=== PATIENT | female | born 1985 | race Caucasian/White ===

== ENCOUNTER 2021-09-15 20:37 | Emergency (ER) | payer OTHER, SELFPAY ==
--- NOTE | 2021-09-15 20:46 | ED_ITS ---
HPI - Seizure General Chief Complaint: Seizure Stated Complaint: Seizure Time Seen by Provider: 09/15/21 20:42 Source: patient Mode of arrival: EMS Limitations: no limitations History of Present Illness HPI Narrative: Patient form longterm morbidly obese 499 lb came from longterm with history of schizoaffective disorder borderline personality disorder posttraumatic stress disorder pseudoseizures and diabetes and also seizure disorder on zonisamide 100 mg daily lamotrigine 150 mg daily and lacosamide 200 mg twice daily also on Ativan 2 mg as needed for seizures today patient had 2 seizures 1 at 19:00 another 1 at 07:30 lasted over a minute patient slumped down from the bed no significant head injury on arrival patient was shaking her upper extremity and lower extremity but awake and communicating not sure whether patient has real seizure or pseudoseizures Related Data Allergies Allergy/AdvReac Type Severity Reaction Status Date / Time Fish Containing Products Allergy Unknown Verified 09/15/21 22:17 Penicillins Allergy Unknown Verified 09/15/21 22:16 tramadol Allergy Unknown Verified 09/15/21 22:17 Review of Systems Review of Systems: Yes all other systems are reviewed and are negative [facility] Social History Social History Advance Directives: No Advance Directives Information Provided: No Physical Exam Vital Signs: Vital Signs: Last Vital Signs Temp 97.9 F 09/15/21 20:52 Pulse 99 09/15/21 21:53 Resp 18 09/15/21 21:53 BP 149/75 H 09/15/21 21:53 Pulse Ox 95 09/15/21 21:53 BMI result Body Mass Index 85.6 Appearance: Alert. Oriented X3. No acute distress. Morbidly obese Eyes: PERRLA, No Nystagmus ENT: Pharynx normal. Oral Mucosa moist Neck: Normal inspection. Neck supple. CVS: Normal heart rate and rhythm. Pulses normal. Respiratory: No respiratory distress. Equal air entry bilateral, no wheezing/rales/rhonchi Abdomen: Soft and nontender. Bowel sounds are present, Skin: Skin warm and dry. Normal skin color. Normal skin turgor. Extremities: No lower extremity edema. No calf tenderness Neuro: Oriented X 3. No motor deficit. No sensory deficit.No cerebellar signs , cranial nerves II-XII intact MDM - Seizure MDM Narrative Medical decision making narrative: Patient with seizures/pseudoseizures disorder on multiple medications at longterm had 2 episodes of short lasting seizures in the ER patient was shaking but alert and awake likely a pseudo seizure patient was given 2 mg of Ativan ivlabs are stable will discharge patient back to longterm Lab Data Attestation: I reviewed the patient's lab results. Result diagrams: 09/15/21 20:56 09/15/21 21:18 Labs: Lab Results 09/15/21 09/15/21 09/15/21 Range/Units 20:56 21:17 21:18 WBC 9.2 (4.8-10.8) X10*3/uL RBC 4.00 L (4.20-5.50) X10*6/uL Hgb 10.7 L (12.0-16.0) g/dl Hct 34.7 L (37.0-47.0) % MCV 86.8 (80.0-98.0) fL MCH 26.8 L (27.0-33.0) pg MCHC 30.8 L (31.0-35.0) g/dl RDW 16.8 H (11.0-16.0) % Plt Count 232 (160-400) X10*3/uL MPV 9.7 (9.4-12.3) fL Immature Gran % (Auto) 0.4 (0.0-0.4) % Neut % (Auto) 78.4 H (45-73) % Lymph % (Auto) 13.3 L (20-40) % [place] % (Auto) 7.2 (2-11) % Eos % (Auto) 0.5 (0-4) % Baso % (Auto) 0.2 (0-2) % Lymph # (Auto) 1.2 (1.2-4.9) X10*3/uL [place] # (Auto) 0.7 (0.1-1.2) X10*3/uL Eos # (Auto) 0.1 (0.0-0.4) X10*3/uL Baso # (Auto) 0.0 (0.0-0.2) X10*3/uL Abs Immat Gran (auto) 0.04 H (0.00-0.03) X10*3/uL Absolute Neuts (auto) 7.2 (2.0-8.3) x10*3/uL Absolute Nucleated RBC 0.000 (0.0-0.012) X10*3/uL Nucleated RBC % (auto) 0.0 (0.0-0.2) /100WBC PT 20.2 H (9.9-13.0) SEC INR 1.8 H (0.9-1.1) APTT 38.7 H (24.1-38.0) SEC Sodium 140 (135-145) mmol/L Potassium 3.8 (3.3-5.1) mmol/L Chloride 101 (96-108) mmol/L Carbon Dioxide 30 H (22-29) mmol/L Anion Gap 13 (12-20) BUN 11 (9-16) mg/dL Creatinine 0.67 (0.5-1.4) mg/dL Estim Creat Clear Calc 226.0 Estimated GFR > 60 Random Glucose 150 H (60-115) mg/dL Calcium 8.5 (8.4-10.2) mg/dL Total Bilirubin 0.3 (0.0-1.0) mg/dL AST 8 (5-31) U/L ALT 15 (0-31) U/L Alkaline Phosphatase 63 (39-117) U/L Total Protein 5.6 L (6.5-8.0) g/dL Albumin 3.6 (3.5-5.0) g/dL Discharge Plan Discharge Clinical Impression: Generalized seizure Patient Disposition: Xfer [facility] Instructions: Nonepileptic Seizures (DC), Recurrent Seizures in Adults (ED) Additional Instructions: Possibly patient had pseudoseizures also had small real seizure at this time patient advised to continue same medication as before and follow up with neurologist
[2021-09-15 20:52] VITALS: BP 116/98; PULSE 99; RESP 21; TEMP 36.6; O2SAT 97; BMI 85.6
[2021-09-15 21:01] LABS: MANUAL DIFF FLAG NO
[2021-09-15 21:03] LABS: Basophils Percent Auto 0.2 % (0-2); Eosinophils Absolute Auto 0.1 X10*3/uL (0.0-0.4); Eosinophils Percent Auto 0.5 % (0-4); Hematocrit 34.7 % (37.0-47.0); Hemoglobin 10.7 g/dl (12.0-16.0); Imm Gran Abs Auto 0.04 X10*3/uL (0.00-0.03); Imm Gran Pct Auto 0.4 % (0.0-0.4); Lymphocytes Absolute Auto 1.2 X10*3/uL (1.2-4.9); Lymphocytes Percent Auto 13.3 % (20-40); Mean Corpuscular HGB Conc 30.8 g/dl (31.0-35.0); Mean Corpuscular Hemoglobin 26.8 pg (27.0-33.0); Mean Corpuscular Volume 86.8 fL (80.0-98.0); Mean Platelet Volume 9.7 fL (9.4-12.3); Monocytes Absolute Auto 0.7 X10*3/uL (0.1-1.2); Monocytes Percent Auto 7.2 % (2-11); Neutrophils Absolute Auto 7.2 x10*3/uL (2.0-8.3); Neutrophils Percent Auto 78.4 % (45-73); Platelet Count 232 X10*3/uL (160-400); Red Cell Distribution Width 16.8 % (11.0-16.0); White Blood Count 9.2 X10*3/uL (4.8-10.8)
[2021-09-15 21:33] LABS: INTERNATIONAL NORM RATIO 1.8 (0.9-1.1); Prothrombin Time 20.2 SEC (9.9-13.0)
[2021-09-15 21:36] LABS: Partial Thromboplastin Time 38.7 SEC (24.1-38.0)
[2021-09-15 21:45] LABS: Alanine Aminotransferase 15 U/L (0-31); Albumin Level 3.6 g/dL (3.5-5.0); Alkaline Phosphatase 63 U/L (39-117); Anion Gap 13 (12-20); Aspartate Amino Transferase 8 U/L (5-31); Bilirubin Total 0.3 mg/dL (0.0-1.0); Blood Urea Nitrogen 11 mg/dL (9-16); Calcium 8.5 mg/dL (8.4-10.2); Carbon Dioxide 30 mmol/L (22-29); Chloride 101 mmol/L (96-108); Estimated Glomerular Filt Rate > 60; Glucose Random 150 mg/dL (60-115); Potassium 3.8 mmol/L (3.3-5.1); Sodium 140 mmol/L (135-145); Total Protein 5.6 g/dL (6.5-8.0)
[2021-09-15 21:53] VITALS: BP 149/75; PULSE 99; RESP 18; O2SAT 95
[2021-09-15] MEDS: LORazepam 2 MG/ML VIAL IVPUSH (22:15)
--- NOTE | 2021-09-15 22:48 | PC.NURSE ---
Pt medicated per AUG Pt tolerated well Report given to [facility]
== END 2021-09-16 00:18 ==
PROVIDERS: Emergency Provider Internal Medicine; PCP Internal Medicine
DX: R56.9 Unspecified convulsions (principal); Z79.899 Other long term (current) drug therapy
CPT/HCPCS: 36415; 80053; 85025; 85610; 85730; 96374; 99283; 99284; J2060

== ENCOUNTER 2021-09-20 17:14 | Emergency (ER) | payer OTHER, SELFPAY ==
[2021-09-20] VITALS (9 sets, daily range): BP systolic 107–140; BP diastolic 46–86; PULSE 92–115; RESP 15–22; TEMP 36.5–37.1; O2SAT 91–97; BMI 90.9
--- NOTE | ~2021-09-20 | XR_ITS ---
EXAMINATION: XR CHEST CLINICAL INFORMATION: Shortness of breath COMPARISON: None TECHNIQUE: Frontal portable view of the chest was obtained. 6:09 PM FINDINGS: No significant abnormality is noted involving the heart, lungs, mediastinum, bony thorax or soft tissues. XR/XR chest 1V IMPRESSION: Unremarkable examination.
--- NOTE | 2021-09-20 17:28 | ED_ITS ---
HPI - Psych General Chief Complaint: Psychiatric Symptoms Stated Complaint: crisis Time Seen by Provider: 09/20/21 17:23 Source: patient Mode of arrival: EMS Limitations: no limitations History of Present Illness HPI Narrative: This is a 36-year-old female past medical history significant for asthma, anxiety, depression, morbid obesity weighing 499 lb, schizoaffective disorder, borderline personality disorder, posttraumatic stress disorder, pseudoseizures, diabetes and seizure disorder presenting to the emergency department with suicidal ideation x1 week progressively worsening. Patient tells me she has been having intermittent suicidal thoughts however she tells me she will need never act on them. She reports increased anxiety. She tells me that the triggering event this thinking about her dad children. She is currently living in a assisted facility which she really likes however, she does not trust the therapist that works there. Patient is tearful upon my history taking. She tells me that recently she cannot keep her mind off of her diet children. 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 She denies drugs, alcohol and tobacco. She also denies visual, auditory and tactile hallucinations. She denies homicidal ideation. Patient tells me that she feels slightly short of breath and like she is wheezing. She denies chest pain, headache, dizziness, weakness, lethargy, fevers, chills, cough, nausea, vomiting, abdominal pain, changes in bowel habits. MD complaint: suicidal ideation, feels depressed and anxiety Onset (ago): week(s) (1) Duration: constant History of same: Yes Relieving factors: none Exacerbating factors: none Context: significant life stressor ( of child years ago.) Associated psychiatric symptoms: depression and suicidal ideation Associated symptoms: denies other symptoms Treatments prior to arrival: none If self harm: admits thoughts of self harm Related Data Home Medications Medication Instructions Recorded Confirmed aclidinium bromide 400 1 inh INHALATION BID 09/20/21 09/20/21 mcg/actuation breath activated powder inhaler (Tudorza Pressair) ascorbic acid (vitamin C) 500 mg 500 mg PO BID 09/20/21 09/20/21 tablet (Vitamin C) calcium carbonate 500 mg calcium 500 mg PO DAILY 09/20/21 09/20/21 (1,250 mg) chewable tablet darunavir 800 mg-cobicistat 150 mg 1 tab PO DAILY 09/20/21 09/20/21 tablet (Prezcobix) divalproex 250 mg tablet,delayed 250 mg PO BID 09/20/21 09/20/21 release docusate sodium 100 mg capsule 100 mg PO BID 09/20/21 09/20/21 fluticasone 500 mcg-salmeterol 50 1 inh INHALATION BID 09/20/21 09/20/21 mcg/dose blistr powdr for inhalation (Advair Diskus) furosemide 40 mg tablet 40 mg PO DAILY 09/20/21 09/20/21 gabapentin 600 mg tablet 600 mg PO QID 09/20/21 09/20/21 haloperidol 10 mg tablet 10 mg PO BEDTIME 09/20/21 09/20/21 haloperidol 5 mg tablet 5 mg PO DAILY 09/20/21 09/20/21 insulin aspart U-100 100 unit/mL 1 sliding scale dose SUBCUT BID 09/20/21 09/20/21 subcutaneous solution (Novolog U-100 Insulin aspart) insulin glargine 100 unit/mL 30 unit SUBCUT BEDTIME 09/20/21 09/20/21 subcutaneous solution (Lantus U-100 Insulin) lacosamide 200 mg tablet 200 mg PO BID 09/20/21 09/20/21 lamotrigine 150 mg tablet 150 mg PO DAILY 09/20/21 09/20/21 levalbuterol tartrate 45 1 puff INHALATION Q4-6H PRN 09/20/21 09/20/21 mcg/actuation aerosol inhaler levothyroxine 50 mcg tablet 50 mcg PO DAILY 09/20/21 09/20/21 liraglutide 0.6 mg/0.1 mL (18 mg/3 3 mg SUBCUT DAILY 09/20/21 09/20/21 mL) subcutaneous pen injector (Victoza 3-Fabian) loratadine 10 mg tablet 10 mg PO DAILY 09/20/21 09/20/21 lorazepam 2 mg tablet 2 mg PO DAILY PRN 09/20/21 09/20/21 melatonin 3 mg tablet 6 mg PO BEDTIME 09/20/21 09/20/21 metoprolol tartrate 50 mg tablet 50 mg PO BID 09/20/21 09/20/21 multivitamin 1 tab PO DAILY 09/20/21 09/20/21 olanzapine 5 mg tablet 5 mg PO Q6H PRN 09/20/21 09/20/21 pantoprazole 40 mg tablet,delayed 40 mg PO DAILY 09/20/21 09/20/21 release potassium chloride 20 mEq 20 meq PO DAILY 09/20/21 09/20/21 tablet,extended release sennosides 8.6 mg tablet (senna) 17.2 mg PO DAILY 09/20/21 09/20/21 trazodone 100 mg tablet 200 mg PO BEDTIME 09/20/21 09/20/21 warfarin 10 mg tablet 12 mg PO DAILY@1700 09/20/21 09/20/21 zonisamide 100 mg capsule 100 mg PO DAILY 09/20/21 09/20/21 Allergies Allergy/AdvReac Type Severity Reaction Status Date / Time Fish Containing Products Allergy Unknown Verified 09/15/21 22:17 Penicillins Allergy Unknown Verified 09/15/21 22:16 tramadol Allergy Unknown Verified 09/15/21 22:17 Review of Systems Review of Systems: Constitutional : No Weight loss, No Fever, No Chills, No Fatigue, No Malaise ENT/Mouth : No sore throat, No Rhinorrhea Eyes: No Eye Pain, No Swelling, No Redness Cardiovascular : No Chest Pain, + SOB, No Dyspnea on Exertion, No Orthopnea, No Edema, No Palpitations Respiratory : No Cough, No Sputum, + Wheezing Gastrointestinal : No Nausea, No Vomiting, No Diarrhea, No Constipation, No abdominal Pain, No Hematochezia, No Melena Genitourinary : No Dysuria, No Urinary Frequency, No Hematuria, Musculoskeletal : No joint pain, No Myalgias, No Joint Swelling Skin : No Skin Lesions, No rash Neuro : No Weakness, No Numbness, No Dizziness, No Headache Psych : + Anxiety/Panic, No Depression, + SI, No HI All other systems reviewed and are negative Yes all other systems are reviewed and are negative [facility] Past Medical History Attestation statement: The following information was validated with the patient. Source: old records reviewed and nursing notes reviewed Social History Social History Advance Directives: No Advance Directives Information Provided: No Physical Exam Vital Signs: Vital Signs: Last Vital Signs Temp 97.7 F 09/20/21 17:36 Pulse 92 09/20/21 17:41 Resp 20 09/20/21 17:41 BP 140/84 H 09/20/21 17:36 Pulse Ox 93 09/20/21 17:36 BMI result Body Mass Index 90.9 Patient noted to be slightly tachycardic and tachypneic however she is tearful, and anxious. Will repeat vitals and patient is more calm. Appearance: Alert.? Oriented X3.? No acute distress.? Patient is tearful. Head: Normocephalic, atraumatic, no step-offs or deformities Eyes: Pupils equal, round and reactive to light.? ENT: Pharynx normal.? Neck: Normal inspection.? Neck supple.? CVS: Normal heart rate and rhythm.? Pulses normal.? Respiratory: No respiratory distress.? Wheezing appreciated throughout all lung herbert. Abdomen: Soft and nontender.? Skin: Skin warm and dry.? Normal skin color.? Normal skin turgor.? Extremities: 2+ pitting edema to bilateral lower extremities No calf ttp, negative Ca bilaterally 5/5 strength to bilateral upper and lower extremities Back: No midline tenderness, no C-spine tenderness, full range of motion, no CVA tenderness bilaterally Neuro: Oriented X 3.? No motor deficit.? No sensory deficit. CN 2-12 intact Course Reevaluation(s) Reevaluation #1: Patient reports that the wheezing improved after albuterol treatment. Patient is noted to have a baseline normocytic anemia. Chemistry with no acute electrolyte abnormalities. BNP within normal limits unlikely that this is CHF. Likely asthma. Patient's urine clean for infection. Patient's urine toxicology positive for fentanyl. Ethanol negative. COVID negative. At this time troponin pending, chest x-ray pending. Time: 18:36 Reevaluation #2: I was called to the bedside as patient was shaking and not responding. Arm drop test normal unlikely that this is a seizure. Likely pseudo seizure. Will obtain CBC, lactic in CK to confirm. Patient now back to baseline saturating well on room air, vital signs stable. Time: 18:54 Reevaluation #3: Repeat CBC within normal limits. Lactic negative. Total creatinine kinase within normal limits. Unlikely that this was a seizure. Patient's troponin negative patient not experiencing chest pain, EKG nonischemic unlikely ACS. BNP negative in it x-ray is unremarkable unlikely CHF. Patient's wheezing likely secondary to asthma. She sounds better after an albuterol treatment. Patient saturating well on room air, negative Ca bilaterally, PERC negative unlikely PE. At this time patient will be placed in physician observation to allow more time to be evaluated by the behavioral health team. At time observation was started patient common cooperative no acute distress. Time: 20:04 MDM - Psych MDM Narrative Medical decision making narrative: 1730 36 yo f pmhx anxiety, depression, schizoaffective d/o, borderline personality d/o, ptsd , dm, seziure, asthma presents w/ wheezing X1 days and depression, anxiety, intermitent passive si thoughts w/o plan X1 week PE with 2+ pitting edema, wheezing throughout, RRR, abdomen soft nontender non distended, neuro nonfocal. Negative ca b/l. Patient tearful. Plan- albuterol, labs, imaging, ua, ethanol, bhn, safety checks Will rule out pneumonia. History and physical examination not consistent with ACS (denies chest pain) or PE. Likely asthma exacerbation. Will also rule out CHF as patient does have 2+ pitting edema to lower extremities. Medical Records Attestation: I reviewed the patient's medical records. Lab Data Attestation: I reviewed the patient's lab results. Result diagrams: 09/20/21 19:12 09/20/21 17:54 Labs: Lab Results 09/20/21 09/20/21 09/20/21 Range/Units 17:54 17:54 17:54 WBC 9.1 (4.8-10.8) X10*3/uL RBC 3.94 L (4.20-5.50) X10*6/uL Hgb 10.3 L (12.0-16.0) g/dl Hct 34.3 L (37.0-47.0) % MCV 87.1 (80.0-98.0) fL MCH 26.1 L (27.0-33.0) pg MCHC 30.0 L (31.0-35.0) g/dl RDW 16.7 H (11.0-16.0) % Plt Count 215 (160-400) X10*3/uL MPV 9.0 L (9.4-12.3) fL Immature Gran % (Auto) 0.4 (0.0-0.4) % Neut % (Auto) 78.2 H (45-73) % Lymph % (Auto) 13.4 L (20-40) % [place] % (Auto) 7.3 (2-11) % Eos % (Auto) 0.4 (0-4) % Baso % (Auto) 0.3 (0-2) % Lymph # (Auto) 1.2 (1.2-4.9) X10*3/uL [place] # (Auto) 0.7 (0.1-1.2) X10*3/uL Eos # (Auto) 0.0 (0.0-0.4) X10*3/uL Baso # (Auto) 0.0 (0.0-0.2) X10*3/uL Abs Immat Gran (auto) 0.04 H (0.00-0.03) X10*3/uL Absolute Neuts (auto) 7.1 (2.0-8.3) x10*3/uL Absolute Nucleated RBC 0.000 (0.0-0.012) X10*3/uL Nucleated RBC % (auto) 0.0 (0.0-0.2) /100WBC Sodium 141 (135-145) mmol/L Potassium 3.9 (3.3-5.1) mmol/L Chloride 101 (96-108) mmol/L Carbon Dioxide 28 (22-29) mmol/L Anion Gap 16 (12-20) BUN 13 (9-16) mg/dL Creatinine 0.67 (0.5-1.4) mg/dL Estim Creat Clear Calc 252.5 Estimated GFR > 60 Random Glucose 131 H (60-115) mg/dL Lactic Acid (0.5-2.0) mmol/L Calcium 9.0 (8.4-10.2) mg/dL Magnesium 1.7 (1.6-2.6) mg/dL Total Bilirubin 0.2 (0.0-1.0) mg/dL AST 7 (5-31) U/L ALT 14 (0-31) U/L Alkaline Phosphatase 64 (39-117) U/L Total Creatine Kinase (26-140) U/L Troponin I High Sens (<3.5-17.0) ng/L B-Natriuretic Peptide (<100) pg/mL Total Protein 5.8 L (6.5-8.0) g/dL Albumin 3.6 (3.5-5.0) g/dL Urine Color Urine Appearance Urine pH (5.0-8.0) Ur Specific [place] (1.005-1.025) Urine Protein (NEG-TRACE) MG/DL Urine Glucose (UA) (NEG) MG/DL Urine Ketones (NEG) MG/DL Urine Blood (NEG) Urine Nitrite (NEG) Ur Leukocyte Esterase (NEG) Urine Opiates Screen (Not Detect) Urine Fentanyl Screen (Not Detect) Ur Barbiturates Screen (Not Detect) Ur Phencyclidine Scrn (Not Detect) Ur Amphetamines Screen (Not Detect) U Benzodiazepines Scrn (Not Detect) Urine Cocaine Screen (Not Detect) U Marijuana (THC) Screen (Not Detect) Ethyl Alcohol mg/dL COVID-19 (JOELLEN) Negative (Negative) COVID-19 Clin Com See Note 09/20/21 09/20/21 09/20/21 Range/Units 17:54 17:54 17:54 WBC (4.8-10.8) X10*3/uL RBC (4.20-5.50) X10*6/uL Hgb (12.0-16.0) g/dl Hct (37.0-47.0) % MCV (80.0-98.0) fL MCH (27.0-33.0) pg MCHC (31.0-35.0) g/dl RDW (11.0-16.0) % Plt Count (160-400) X10*3/uL MPV (9.4-12.3) fL Immature Gran % (Auto) (0.0-0.4) % Neut % (Auto) (45-73) % Lymph % (Auto) (20-40) % [place] % (Auto) (2-11) % Eos % (Auto) (0-4) % Baso % (Auto) (0-2) % Lymph # (Auto) (1.2-4.9) X10*3/uL [place] # (Auto) (0.1-1.2) X10*3/uL Eos # (Auto) (0.0-0.4) X10*3/uL Baso # (Auto) (0.0-0.2) X10*3/uL Abs Immat Gran (auto) (0.00-0.03) X10*3/uL Absolute Neuts (auto) (2.0-8.3) x10*3/uL Absolute Nucleated RBC (0.0-0.012) X10*3/uL Nucleated RBC % (auto) (0.0-0.2) /100WBC Sodium (135-145) mmol/L Potassium (3.3-5.1) mmol/L Chloride (96-108) mmol/L Carbon Dioxide (22-29) mmol/L Anion Gap (12-20) BUN (9-16) mg/dL Creatinine (0.5-1.4) mg/dL Estim Creat Clear Calc Estimated GFR Random Glucose (60-115) mg/dL Lactic Acid (0.5-2.0) mmol/L Calcium (8.4-10.2) mg/dL Magnesium (1.6-2.6) mg/dL Total Bilirubin (0.0-1.0) mg/dL AST (5-31) U/L ALT (0-31) U/L Alkaline Phosphatase (39-117) U/L Total Creatine Kinase (26-140) U/L Troponin I High Sens < 3.5 (<3.5-17.0) ng/L B-Natriuretic Peptide 38 (<100) pg/mL Total Protein (6.5-8.0) g/dL Albumin (3.5-5.0) g/dL Urine Color Urine Appearance Urine pH (5.0-8.0) Ur Specific [place] (1.005-1.025) Urine Protein (NEG-TRACE) MG/DL Urine Glucose (UA) (NEG) MG/DL Urine Ketones (NEG) MG/DL Urine Blood (NEG) Urine Nitrite (NEG) Ur Leukocyte Esterase (NEG) Urine Opiates Screen (Not Detect) Urine Fentanyl Screen (Not Detect) Ur Barbiturates Screen (Not Detect) Ur Phencyclidine Scrn (Not Detect) Ur Amphetamines Screen (Not Detect) U Benzodiazepines Scrn (Not Detect) Urine Cocaine Screen (Not Detect) U Marijuana (THC) Screen (Not Detect) Ethyl Alcohol < 10 mg/dL COVID-19 (JOELLEN) (Negative) COVID-19 Clin Com 04/09/20/21 09/20/21 Range/Units 18:05 18:05 19:12 WBC 8.5 (4.8-10.8) X10*3/uL RBC 3.87 L (4.20-5.50) X10*6/uL Hgb 10.4 L (12.0-16.0) g/dl Hct 33.7 L (37.0-47.0) % MCV 87.1 (80.0-98.0) fL MCH 26.9 L (27.0-33.0) pg MCHC 30.9 L (31.0-35.0) g/dl RDW 16.9 H (11.0-16.0) % Plt Count 213 (160-400) X10*3/uL MPV 9.0 L (9.4-12.3) fL Immature Gran % (Auto) 0.5 H (0.0-0.4) % Neut % (Auto) 74.8 H (45-73) % Lymph % (Auto) 16.4 L (20-40) % [place] % (Auto) 7.6 (2-11) % Eos % (Auto) 0.5 (0-4) % Baso % (Auto) 0.2 (0-2) % Lymph # (Auto) 1.4 (1.2-4.9) X10*3/uL [place] # (Auto) 0.6 (0.1-1.2) X10*3/uL Eos # (Auto) 0.0 (0.0-0.4) X10*3/uL Baso # (Auto) 0.0 (0.0-0.2) X10*3/uL Abs Immat Gran (auto) 0.04 H (0.00-0.03) X10*3/uL Absolute Neuts (auto) 6.3 (2.0-8.3) x10*3/uL Absolute Nucleated RBC 0.000 (0.0-0.012) X10*3/uL Nucleated RBC % (auto) 0.0 (0.0-0.2) /100WBC Sodium (135-145) mmol/L Potassium (3.3-5.1) mmol/L Chloride (96-108) mmol/L Carbon Dioxide (22-29) mmol/L Anion Gap (12-20) BUN (9-16) mg/dL Creatinine (0.5-1.4) mg/dL Estim Creat Clear Calc Estimated GFR Random Glucose (60-115) mg/dL Lactic Acid (0.5-2.0) mmol/L Calcium (8.4-10.2) mg/dL Magnesium (1.6-2.6) mg/dL Total Bilirubin (0.0-1.0) mg/dL AST (5-31) U/L ALT (0-31) U/L Alkaline Phosphatase (39-117) U/L Total Creatine Kinase (26-140) U/L Troponin I High Sens (<3.5-17.0) ng/L B-Natriuretic Peptide (<100) pg/mL Total Protein (6.5-8.0) g/dL Albumin (3.5-5.0) g/dL Urine Color YELLOW Urine Appearance CLEAR Urine pH 6.5 (5.0-8.0) Ur Specific [place] 1.010 (1.005-1.025) Urine Protein NEG (NEG-TRACE) MG/DL Urine Glucose (UA) NEG (NEG) MG/DL Urine Ketones NEG (NEG) MG/DL Urine Blood NEG (NEG) Urine Nitrite NEG (NEG) Ur Leukocyte Esterase NEG (NEG) Urine Opiates Screen Not Detected (Not Detect) Urine Fentanyl Screen POSITIVE H (Not Detect) Ur Barbiturates Screen Not Detected (Not Detect) Ur Phencyclidine Scrn Not Detected (Not Detect) Ur Amphetamines Screen Not Detected (Not Detect) U Benzodiazepines Scrn Not Detected (Not Detect) Urine Cocaine Screen Not Detected (Not Detect) U Marijuana (THC) Screen Not Detected (Not Detect) Ethyl Alcohol mg/dL COVID-19 (JOELLEN) (Negative) COVID-19 Clin Com 09/20/21 09/20/21 Range/Units 19:12 19:12 WBC (4.8-10.8) X10*3/uL RBC (4.20-5.50) X10*6/uL Hgb (12.0-16.0) g/dl Hct (37.0-47.0) % MCV (80.0-98.0) fL MCH (27.0-33.0) pg MCHC (31.0-35.0) g/dl RDW (11.0-16.0) % Plt Count (160-400) X10*3/uL MPV (9.4-12.3) fL Immature Gran % (Auto) (0.0-0.4) % Neut % (Auto) (45-73) % Lymph % (Auto) (20-40) % [place] % (Auto) (2-11) % Eos % (Auto) (0-4) % Baso % (Auto) (0-2) % Lymph # (Auto) (1.2-4.9) X10*3/uL [place] # (Auto) (0.1-1.2) X10*3/uL Eos # (Auto) (0.0-0.4) X10*3/uL Baso # (Auto) (0.0-0.2) X10*3/uL Abs Immat Gran (auto) (0.00-0.03) X10*3/uL Absolute Neuts (auto) (2.0-8.3) x10*3/uL Absolute Nucleated RBC (0.0-0.012) X10*3/uL Nucleated RBC % (auto) (0.0-0.2) /100WBC Sodium (135-145) mmol/L Potassium (3.3-5.1) mmol/L Chloride (96-108) mmol/L Carbon Dioxide (22-29) mmol/L Anion Gap (12-20) BUN (9-16) mg/dL Creatinine (0.5-1.4) mg/dL Estim Creat Clear Calc Estimated GFR Random Glucose (60-115) mg/dL Lactic Acid 2.0 (0.5-2.0) mmol/L Calcium (8.4-10.2) mg/dL Magnesium (1.6-2.6) mg/dL Total Bilirubin (0.0-1.0) mg/dL AST (5-31) U/L ALT (0-31) U/L Alkaline Phosphatase (39-117) U/L Total Creatine Kinase 32 (26-140) U/L Troponin I High Sens (<3.5-17.0) ng/L B-Natriuretic Peptide (<100) pg/mL Total Protein (6.5-8.0) g/dL Albumin (3.5-5.0) g/dL Urine Color Urine Appearance Urine pH (5.0-8.0) Ur Specific [place] (1.005-1.025) Urine Protein (NEG-TRACE) MG/DL Urine Glucose (UA) (NEG) MG/DL Urine Ketones (NEG) MG/DL Urine Blood (NEG) Urine Nitrite (NEG) Ur Leukocyte Esterase (NEG) Urine Opiates Screen (Not Detect) Urine Fentanyl Screen (Not Detect) Ur Barbiturates Screen (Not Detect) Ur Phencyclidine Scrn (Not Detect) Ur Amphetamines Screen (Not Detect) U Benzodiazepines Scrn (Not Detect) Urine Cocaine Screen (Not Detect) U Marijuana (THC) Screen (Not Detect) Ethyl Alcohol mg/dL COVID-19 (JOELLEN) (Negative) COVID-19 Clin Com ECG Data Attestation: I personally reviewed and interpreted this ECG as follows: ECG interpretation date: 09/20/21 ECG interpretation time: 20:04 Prior ECG tracings: not available for review Interpretation: Ventricular rate of 118, LA normal, QRS normal, QT/QTC normal. EKG shows sinus tachycardia no ST elevations concerning for ischemia. No previous EKGs to compare with. Patient likely tachycardic secondary to albuterol treatment and anxiety. Critical Care Time Critical Care Time Critical Care Time: No Discharge Plan Discharge Clinical Impression: Depression, Suicidal ideation, Acute anxiety, Pseudoseizure Patient Disposition: Still a Patient Prescriptions: No Action multivitamin [Multi-Vitamin] Tablet 1 tab PO DAILY 0RF furosemide 40 mg Tablet 40 mg PO DAILY 0RF lamotrigine 150 mg Tablet 150 mg PO DAILY 0RF sennosides [senna] 8.6 mg Tablet 17.2 mg PO DAILY 0RF gabapentin 600 mg Tablet 600 mg PO QID 0RF Lantus U-100 Insulin 100 unit/mL Solution 30 unit SUBCUT BEDTIME 0RF haloperidol 5 mg Tablet 5 mg PO DAILY 0RF divalproex 250 mg Tablet,Delayed Release (Dr/Ec) 250 mg PO BID 0RF warfarin 10 mg Tablet 12 mg PO DAILY@1700 0RF olanzapine 5 mg Tablet 5 mg PO Q6H PRN (Reason: Anxiety) 0RF melatonin 3 mg Tablet 6 mg PO BEDTIME 0RF zonisamide 100 mg Capsule 100 mg PO DAILY 0RF ascorbic acid (vitamin C) [Vitamin C] 500 mg Tablet 500 mg PO BID 0RF trazodone 100 mg Tablet 200 mg PO BEDTIME 0RF lorazepam 2 mg Tablet 2 mg PO DAILY PRN (Reason: Anxiety) 0RF insulin aspart U-100 [Novolog U-100 Insulin aspart] 100 unit/mL Solution 1 sliding scale dose SUBCUT BID 0RF Rx Instructions: 201-250: 2 UNITS 251-300: 4 UNITS 301-350: 6 UNITS 351-400: 8 UNITS levothyroxine 50 mcg Tablet 50 mcg PO DAILY 0RF pantoprazole 40 mg Tablet,Delayed Release (Dr/Ec) 40 mg PO DAILY 0RF fluticasone propion-salmeterol [Advair Diskus] 500-50 mcg/dose Blister With Device 1 inh INHALATION BID 0RF haloperidol 10 mg Tablet 10 mg PO BEDTIME 0RF metoprolol tartrate 50 mg Tablet 50 mg PO BID 0RF docusate sodium 100 mg Capsule 100 mg PO BID 0RF calcium carbonate [Tums 500] 500 mg calcium (1,250 mg) Tablet,Chewable 500 mg PO DAILY 0RF loratadine 10 mg Tablet 10 mg PO DAILY 0RF levalbuterol tartrate 45 mcg/actuation Hfa Aerosol Inhaler 1 puff INHALATION Q4-6H PRN (Reason: Shortness Of Breath) 0RF lacosamide 200 mg Tablet 200 mg PO BID 0RF Victoza 3-Fabian 0.6 mg/0.1 mL (18 mg/3 mL) Pen Injector 3 mg SUBCUT DAILY 0RF Tudorza Pressair 400 mcg/actuation Aerosol Powdr Breath Activated 1 inh INHALATION BID 0RF potassium chloride 20 mEq Tablet Extended Release 20 meq PO DAILY 0RF Prezcobix 800-150 mg-mg Tablet 1 tab PO DAILY 0RF Rx Instructions: must administer with a meal/food
[2021-09-20] MEDS: Albuterol Sulfate (0.083%) 2.5 MG/3 ML VIAL.NEB 10 MG INHALE (17:40)
[2021-09-20 18:03] LABS: MANUAL DIFF FLAG NO
[2021-09-20 18:09] LABS: Basophils Percent Auto 0.3 % (0-2); Eosinophils Percent Auto 0.4 % (0-4); Hematocrit 34.3 % (37.0-47.0); Hemoglobin 10.3 g/dl (12.0-16.0); Imm Gran Abs Auto 0.04 X10*3/uL (0.00-0.03); Imm Gran Pct Auto 0.4 % (0.0-0.4); Lymphocytes Absolute Auto 1.2 X10*3/uL (1.2-4.9); Lymphocytes Percent Auto 13.4 % (20-40); Mean Corpuscular Hemoglobin 26.1 pg (27.0-33.0); Mean Corpuscular Volume 87.1 fL (80.0-98.0); Monocytes Absolute Auto 0.7 X10*3/uL (0.1-1.2); Monocytes Percent Auto 7.3 % (2-11); Neutrophils Absolute Auto 7.1 x10*3/uL (2.0-8.3); Neutrophils Percent Auto 78.2 % (45-73); Platelet Count 215 X10*3/uL (160-400); Red Blood Count 3.94 X10*6/uL (4.20-5.50); Red Cell Distribution Width 16.7 % (11.0-16.0); White Blood Count 9.1 X10*3/uL (4.8-10.8)
[2021-09-20 18:14] LABS: Appearance Urine CLEAR; Color Urine YELLOW; Glucose Urine UA NEG (NEG); Leukocyte Esterase Urine NEG (NEG); Nitrite Urine NEG (NEG); PH 6.5 (5.0-8.0); Urine Blood NEG (NEG); Urine Ketones NEG (NEG); Urine Protein NEG (NEG-TRACE)
[2021-09-20 18:22] LABS: COVID-19 Test Negative (Negative); Ethanol < 10 mg/dL; IDNOW Serial# 55D5AD1C
--- NOTE | 2021-09-20 18:22 | PHA.MEDREC ---
Pharmacy Consult ? Medication Reconciliation Pharmacy has completed the medication reconciliation. Was able to get a current medication list from [facility] with the last administration times on it.
[2021-09-20 18:26] LABS: Alanine Aminotransferase 14 U/L (0-31); Albumin Level 3.6 g/dL (3.5-5.0); Alkaline Phosphatase 64 U/L (39-117); Anion Gap 16 (12-20); Aspartate Amino Transferase 7 U/L (5-31); Bilirubin Total 0.2 mg/dL (0.0-1.0); Blood Urea Nitrogen 13 mg/dL (9-16); Carbon Dioxide 28 mmol/L (22-29); Chloride 101 mmol/L (96-108); Creatinine Clr Calc Pharmacy 252.5; Estimated Glomerular Filt Rate > 60; Glucose Random 131 mg/dL (60-115); Magnesium 1.7 mg/dL (1.6-2.6); Potassium 3.9 mmol/L (3.3-5.1); Sodium 141 mmol/L (135-145); Total Protein 5.8 g/dL (6.5-8.0)
[2021-09-20 18:28] LABS: Amphetamine Screen Urine Not Detected (Not Detect); Barbiturates, Urine Not Detected (Not Detect); Benzodiazepines Screen Urine Not Detected (Not Detect); Cannabinoid Screen Urine Not Detected (Not Detect); Cocaine Screen Urine Not Detected (Not Detect); Fentanyl, urine POSITIVE (Not Detect); Opiate Screen Urine Not Detected (Not Detect); Phencyclidine Screen Urine Not Detected (Not Detect)
[2021-09-20 18:34] LABS: B Type Natriuretic Peptide 38 pg/mL (<100)
--- NOTE | 2021-09-20 18:36 | ECG_ITS ---
Test Reason : SOB Blood Pressure : / mmHG Vent. Rate : 118 BPM Atrial Rate : 118 BPM P-R Int : 172 ms QRS Dur : 114 ms QT Int : 340 ms P-R-T Axes : 061 066 033 degrees QTc Int : 476 ms Sinus tachycardia nonspecific ST changes Abnormal ECG No previous ECGs available Referred By: Anisha Mario Electronically Signed By:Nehemiah Gutierrez
[2021-09-20 18:57] LABS: Troponin-I High Sensitivity < 3.5 ng/L (<3.5-17.0)
--- NOTE | 2021-09-20 19:05 | PC.NURSE ---
Pt resting, sitter at bedside, safety maintained, Pt needs met, this RN continues to monitor.
[2021-09-20 19:17] LABS: MANUAL DIFF FLAG NO
[2021-09-20 19:19] LABS: Basophils Percent Auto 0.2 % (0-2); Eosinophils Percent Auto 0.5 % (0-4); Hematocrit 33.7 % (37.0-47.0); Hemoglobin 10.4 g/dl (12.0-16.0); Imm Gran Abs Auto 0.04 X10*3/uL (0.00-0.03); Imm Gran Pct Auto 0.5 % (0.0-0.4); Lymphocytes Absolute Auto 1.4 X10*3/uL (1.2-4.9); Lymphocytes Percent Auto 16.4 % (20-40); Mean Corpuscular HGB Conc 30.9 g/dl (31.0-35.0); Mean Corpuscular Hemoglobin 26.9 pg (27.0-33.0); Mean Corpuscular Volume 87.1 fL (80.0-98.0); Monocytes Absolute Auto 0.6 X10*3/uL (0.1-1.2); Monocytes Percent Auto 7.6 % (2-11); Neutrophils Absolute Auto 6.3 x10*3/uL (2.0-8.3); Neutrophils Percent Auto 74.8 % (45-73); Platelet Count 213 X10*3/uL (160-400); Red Blood Count 3.87 X10*6/uL (4.20-5.50); Red Cell Distribution Width 16.9 % (11.0-16.0); White Blood Count 8.5 X10*3/uL (4.8-10.8)
--- NOTE | 2021-09-20 21:06 | PC.NURSE ---
Took report from Elias to assume care of Pt
--- NOTE | 2021-09-20 21:08 | PC.NURSE ---
Took report from Elias to assume care of Pt.
--- NOTE | 2021-09-21 00:33 | PC.NURSE ---
pt sleeping spo02 95% on 2lpm
[2021-09-21 00:34] VITALS: O2SAT 95
[2021-09-21 01:24] LABS: Glucose, Whole Blood 135 mg/dL (60-115)
--- NOTE | 2021-09-21 01:25 | PC.NURSE ---
pt incontinent of urine, stated her legs were wet, reports being a 2+ stand and pivot assist at her facility. pt states she is unable to roll. This RN along with another RN and 3 ED techs able to roll pt to give incontinent care. pt able to stand and pivot with MAX assist. pt given a pb sandwich and Po fluids.
[2021-09-21 01:46] LABS: Glucose, Whole Blood 132 mg/dL (60-115)
--- NOTE | 2021-09-21 02:27 | PC.NURSE ---
pt sleeping at this time
[2021-09-21 02:58] VITALS: BP 118/67; PULSE 108; RESP 16; TEMP 36.9; O2SAT 94
[2021-09-21 04:12] VITALS: BP 136/71; PULSE 101; RESP 14; O2SAT 97
== END 2021-09-21 05:47 | disposition skilled nursing facility (03) ==
PROVIDERS: Physician Assistant; Emergency Provider Emergency Medicine; PCP Internal Medicine
DX: F33.1 Major depressive disorder, recurrent, moderate (principal); R45.851 Suicidal ideations; F41.1 Generalized anxiety disorder; F43.0 Acute stress reaction; R06.02 Shortness of breath; R56.9 Unspecified convulsions; Z20.822 Contact with and (suspected) exposure to COVID-19; Z79.899 Other long term (current) drug therapy
CPT/HCPCS: 36415; 71045; 80053; 80307; 81003; 82077; 82550; 82947; 83605; 83735; 83880; 84484; 85025; 87635; 93005; 94640; 94644; 99284

== ENCOUNTER 2021-11-05 18:34 | Emergency (ER) | payer OTHER, SELFPAY ==
[2021-11-05] VITALS (8 sets, daily range): BP systolic 136; BP diastolic 106; PULSE 91–104; RESP 16–90; TEMP 36.9; O2SAT 64–99; BMI 66.5
--- NOTE | 2021-11-05 | ECG_ITS ---
Test Reason : SEIZURE Blood Pressure : / mmHG Vent. Rate : 094 BPM Atrial Rate : 094 BPM P-R Int : 196 ms QRS Dur : 124 ms QT Int : 376 ms P-R-T Axes : 075 075 059 degrees QTc Int : 470 ms Normal sinus rhythm Non-specific intra-ventricular conduction delay Borderline ECG When compared with ECG of 20-SEP-2021 18:50, T wave inversion no longer evident in Inferior leads Referred By: Generic ED Physician Electronically Signed By:GEORGES GOMEZ MD
--- NOTE | ~2021-11-05 | CT_ITS ---
EXAMINATION: CT HEAD WITHOUT CONTRAST CLINICAL INFORMATION: Status post fall. COMPARISON: None TECHNIQUE: Contiguous axial imaging was performed from the skull base to vertex without intravenous administration of contrast. Coronal and sagittal reformatted images were obtained. This CT examination was performed using dose optimization techniques as appropriate, variously including the following: *Automated exposure control *Adjustment of mA and/or kV according to patient size (this includes techniques or standardized protocols for targeted exams where dose is matched to indication/reason for exam; i.e. extremities or head) *Use of iterative reconstruction technique DLP: 1462 mGy-cm FINDINGS: There is no evidence of acute intracranial hemorrhage or territorial infarction. No abnormal mass effect or midline shift is seen. Frances to white matter differentiation is well preserved. No extra-axial fluid collections are identified. The ventricles are normal in size. There is no abnormal attenuation within the brain parenchyma. The osseous structures and soft tissues are normal. Moderate-sized right basilar maxillary and the medial right sphenoid retention cyst versus inflammatory polyps. Bilateral kirk bullosa. No air-fluid levels. Mild anterior to mid nasal septal deviation, apex the left with left apical spur. CT/CT head/brain wo con IMPRESSION: No acute intracranial pathology.
--- NOTE | 2021-11-05 19:29 | PC.NURSE ---
Spo2 decreased to 64%, Pt repositioned, placed on NRB, with good effect.
--- NOTE | 2021-11-05 19:34 | PC.NURSE ---
sezuire pad applied. 18g Lfa established., EKG done
[2021-11-05] MEDS: ondansetron HCL 4 MG/2 ML VIAL IVPUSH (20:02)
[2021-11-05] MEDS: LORazepam 2 MG/ML VIAL IVPUSH (20:03)
[2021-11-05] MEDS: 0.9 % Sodium Chloride 1,000 ML 999 ML IV (20:04)
[2021-11-05 20:12] LABS: MANUAL DIFF FLAG NO
[2021-11-05 20:15] LABS: Basophils Percent Auto 0.3 % (0-2); Eosinophils Absolute Auto 0.1 X10*3/uL (0.0-0.4); Eosinophils Percent Auto 0.9 % (0-4); Hemoglobin 10.3 g/dl (12.0-16.0); Imm Gran Abs Auto 0.04 X10*3/uL (0.00-0.03); Imm Gran Pct Auto 0.4 % (0.0-0.4); Lymphocytes Absolute Auto 1.2 X10*3/uL (1.2-4.9); Lymphocytes Percent Auto 12.1 % (20-40); Mean Corpuscular HGB Conc 30.3 g/dl (31.0-35.0); Mean Corpuscular Hemoglobin 25.1 pg (27.0-33.0); Mean Corpuscular Volume 82.7 fL (80.0-98.0); Monocytes Absolute Auto 0.7 X10*3/uL (0.1-1.2); Monocytes Percent Auto 6.7 % (2-11); Neutrophils Absolute Auto 8.1 x10*3/uL (2.0-8.3); Neutrophils Percent Auto 79.6 % (45-73); Platelet Count 202 X10*3/uL (160-400); Red Blood Count 4.11 X10*6/uL (4.20-5.50); White Blood Count 10.2 X10*3/uL (4.8-10.8)
[2021-11-05 20:31] LABS: Alanine Aminotransferase 18 U/L (0-31); Albumin Level 3.7 g/dL (3.5-5.0); Alkaline Phosphatase 68 U/L (39-117); Anion Gap 12 (12-20); Aspartate Amino Transferase 7 U/L (5-31); Bilirubin Total 0.4 mg/dL (0.0-1.0); Blood Urea Nitrogen 12 mg/dL (9-16); Calcium 9.2 mg/dL (8.4-10.2); Carbon Dioxide 30 mmol/L (22-29); Chloride 102 mmol/L (96-108); Creatinine Clr Calc Pharmacy 179.4; Estimated Glomerular Filt Rate > 60; Glucose Random 153 mg/dL (60-115); Lipase 30 U/L (8-78); Potassium 3.7 mmol/L (3.3-5.1); Sodium 140 mmol/L (135-145); Total Protein 6.1 g/dL (6.5-8.0)
[2021-11-05 20:38] LABS: INTERNATIONAL NORM RATIO 2.5 (0.9-1.1); Prothrombin Time 29.3 SEC (9.9-13.0)
--- NOTE | 2021-11-05 20:43 | ED.GENADULT ---
HPI - General Adult General Chief complaint: Seizure Stated complaint: seizure Time Seen by Provider: 11/05/21 19:43 Source: patient and EMS Limitations: no limitations History of Present Illness HPI narrative: This is day 36-year-old female with a history of innumerable medical problems, including seizures, on Keppra 1000 mg b.i.d., also on lorazepam p.r.n. seizures, trazodone, who resides at a custodial facility, fell out of her wheelchair today and hit her head, reportedly had seizure activity. The patient also has history of schizoaffective disorder, borderline personality disorder, morbid obesity with a weight of nearly 500 lb, DVT, on Coumadin, HIV, hepatitis-C, COPD, asthma, PTSD, restlessness and agitation, opioid dependence, hypertension UTI, chronic pain syndrome, type 2 diabetes mellitus with diabetic neuropathy, psychotic disorder with delusions, suicidal ideation, hypothyroidism, constipation, GERD, anxiety, chronic kidney disease, depression, impulse disorder, difficulty in walking, acute respiratory failure, diastolic heart failure. The patient complains of a severe headache. She also has pain in her upper abdomen. She admits nausea, denies vomiting. She denies any diarrhea. She denies any chest pain shortness of breath. Related Data Home Medications Medication Instructions Recorded Confirmed aclidinium bromide 400 1 inh INHALATION BID 09/20/21 09/20/21 mcg/actuation breath activated powder inhaler (Tudorza Pressair) ascorbic acid (vitamin C) 500 mg 500 mg PO BID 09/20/21 09/20/21 tablet (Vitamin C) calcium carbonate 500 mg calcium 500 mg PO DAILY 09/20/21 09/20/21 (1,250 mg) chewable tablet darunavir 800 mg-cobicistat 150 mg 1 tab PO DAILY 09/20/21 09/20/21 tablet (Prezcobix) divalproex 250 mg tablet,delayed 250 mg PO BID 09/20/21 09/20/21 release docusate sodium 100 mg capsule 100 mg PO BID 09/20/21 09/20/21 fluticasone 500 mcg-salmeterol 50 1 inh INHALATION BID 09/20/21 09/20/21 mcg/dose blistr powdr for inhalation (Advair Diskus) furosemide 40 mg tablet 40 mg PO DAILY 09/20/21 09/20/21 gabapentin 600 mg tablet 600 mg PO QID 09/20/21 09/20/21 haloperidol 10 mg tablet 10 mg PO BEDTIME 09/20/21 09/20/21 haloperidol 5 mg tablet 5 mg PO DAILY 09/20/21 09/20/21 insulin aspart U-100 100 unit/mL 1 sliding scale dose SUBCUT BID 09/20/21 09/20/21 subcutaneous solution (Novolog U-100 Insulin aspart) insulin glargine 100 unit/mL 30 unit SUBCUT BEDTIME 09/20/21 09/20/21 subcutaneous solution (Lantus U-100 Insulin) lacosamide 200 mg tablet 200 mg PO BID 09/20/21 09/20/21 lamotrigine 150 mg tablet 150 mg PO DAILY 09/20/21 09/20/21 levalbuterol tartrate 45 1 puff INHALATION Q4-6H PRN 09/20/21 09/20/21 mcg/actuation aerosol inhaler levothyroxine 50 mcg tablet 50 mcg PO DAILY 09/20/21 09/20/21 liraglutide 0.6 mg/0.1 mL (18 mg/3 3 mg SUBCUT DAILY 09/20/21 09/20/21 mL) subcutaneous pen injector (SDNsquare 3-Fabian) loratadine 10 mg tablet 10 mg PO DAILY 09/20/21 09/20/21 lorazepam 2 mg tablet 2 mg PO DAILY PRN 09/20/21 09/20/21 melatonin 3 mg tablet 6 mg PO BEDTIME 09/20/21 09/20/21 metoprolol tartrate 50 mg tablet 50 mg PO BID 09/20/21 09/20/21 multivitamin 1 tab PO DAILY 09/20/21 09/20/21 olanzapine 5 mg tablet 5 mg PO Q6H PRN 09/20/21 09/20/21 pantoprazole 40 mg tablet,delayed 40 mg PO DAILY 09/20/21 09/20/21 release potassium chloride 20 mEq 20 meq PO DAILY 09/20/21 09/20/21 tablet,extended release sennosides 8.6 mg tablet (senna) 17.2 mg PO DAILY 09/20/21 09/20/21 trazodone 100 mg tablet 200 mg PO BEDTIME 09/20/21 09/20/21 warfarin 10 mg tablet 12 mg PO DAILY@1700 09/20/21 09/20/21 zonisamide 100 mg capsule 100 mg PO DAILY 09/20/21 09/20/21 Allergies Allergy/AdvReac Type Severity Reaction Status Date / Time Fish Containing Products Allergy Unknown Verified 09/15/21 22:17 Penicillins Allergy Unknown Verified 09/15/21 22:16 tramadol Allergy Unknown Verified 09/15/21 22:17 Review of Systems Review of Systems: Yes all other systems are reviewed and are negative Constitutional: Constitutional: Reports as per HPI, Denies fever(s) and Reports headache(s) Eyes: Eyes: Reports as per HPI and Reports no additional eye complaints ENT: Reports system reviewed and no additional complaints, except as documented, Reports as per HPI, Reports headache(s), Denies nasal congestion, Denies nasal discharge and Denies sore throat Cardiovascular: Cardiovascular: Reports as per HPI, Denies chest pain and Denies dyspnea Respiratory: Respiratory: Reports as per HPI, Denies cough and Denies dyspnea Gastrointestinal: Gastrointestinal: Reports as per HPI, Reports abdominal pain, Denies diarrhea and Denies vomiting Genitourinary: Genitourinary: Reports as per HPI, Denies hematuria, Denies urinary frequency and Denies dysuria Musculoskeletal: Musculoskeletal: Reports no additional musculoskeletal complaints and Denies numbness Integumentary/Breasts: Skin/Breast: Reports as per HPI and Denies rash Neurologic: Reports as per HPI, Reports headache(s), Denies focal weakness, Denies numbness and Reports convulsions Psychiatric: Psychiatric: Reports no additional psychiatric complaints and Reports as per HPI Endocrine: Endocrine: Reports no additional endocrine complaints and Reports as per HPI Hematologic/Lymphatic: Hematologic/Lymphatic: Reports no additional hematologic/lymphatic complaints, Reports as per HPI and Reports other (No peripheral edema) [facility] Social History Social History Alcohol intake: never Smoked in Last 30 Days: No Use of substances other than those prescribed or required for medical reasons: No Advance Directives: No Advance Directives Information Provided: No Physical Exam ED Vital Signs: Vital Signs - 24 hr 11/05/21 19:09 11/05/21 22:00 11/05/21 22:51 Temperature 98.5 F Pulse Rate 104 H 91 Respiratory Rate 18 16 Blood Pressure 136/106 H Pulse Oximetry 98 96 70 L 11/05/21 22:54 11/05/21 23:50 11/05/21 23:53 Temperature Pulse Rate Respiratory Rate 90 H Blood Pressure Pulse Oximetry 84 L 64 L 99 11/05/21 23:56 11/05/21 23:57 Temperature Pulse Rate 98 94 Respiratory Rate Blood Pressure Pulse Oximetry 82 L 86 L BMI result Body Mass Index 66.5 Const Other: Patient morbidly obese, not in distress General: no acute distress Orientation/consciousness: patient oriented x3 [facility]: Yes normal to inspection General nose exam: Normal external nose present Mouth: moist mucous membranes Throat: Yes posterior oropharynx normal, Yes tonsils normal and Yes uvula midline Eyes Eyelids: Yes eyelids normal Conjunctivae: conjunctivae normal Pupils: Equal, round and reactive pupils present Neck Neck: Yes supple Resp Effort & Inspection: normal respiratory effort Auscultation: clear to auscultation bilaterally Cardio Rate: regular rate Rhythm: regular rhythm Heart sounds: S1 normal heart sound present, S2 normal heart sound present, no gallops, no murmurs and no rubs GI Inspection: No distended Palpation (GI): Soft to palpation and Tenderness to palpation present (GI) (Epigastric) Negative for not in the LLQ and not in the RLQ Skin General skin exam: other (Warm and dry) Neuro General: patient oriented x3 and CN's II-XI intact bilaterally Cranial nerves: Yes Equal, round and reactive pupils present Extrem General: Yes no pedal edema Psych Affect: normal affect Attitude: cooperative Medical Decision Making [facility] Narrative Medical decision making narrative: Patient sent in for a fall from her wheelchair no reported seizure activity. Patient reportedly here was initially hypoxic and having some tremors. Pulse oximetry reading was not reliable at that time since the patient was shaking. The patient soon afterward was evaluated and did not appear postictal, answered questions completely. Patient complained of a headache after her fall. The patient subsequently, prior to discharge had what appeared to be pseudo seizure activity with tremors of her hands. Her eyes however were open and tracking and she did not allow her hand to hit her face when dropped from above. Patient was not postictal after this. Her pulse oximetry fell however when the probe was held on her hand false oximetry was 96%, even during this pseudo seizure activity. The patient had an extensive workup here including CT scan of the brain, labs, urinalysis, all of which were unremarkable. The patient had complained of some epigastric pain. CT scan of the abdomen and pelvis was ordered however patient could not fit into the CT scanner due to her morbid obesity; the tech was afraid she would get stuck if they tried to put her in the machine. Given the overall clinical picture in the patient's history of borderline personality disorder, substance abuse disorder, and diabetes pseudoseizures, I believe the patient is safe for outpatient follow-up Lab Data Result diagrams: 11/05/21 20:02 11/05/21 20:02 Labs: Lab Results 11/05/21 11/05/21 11/05/21 Range/Units 20:02 20:02 20: WBC 10.2 (4.8-10.8) X10*3/uL RBC 4.11 L (4.20-5.50) X10*6/uL Hgb 10.3 L (12.0-16.0) g/dl Hct 34.0 L (37.0-47.0) % MCV 82.7 (80.0-98.0) fL MCH 25.1 L (27.0-33.0) pg MCHC 30.3 L (31.0-35.0) g/dl RDW 18.0 H (11.0-16.0) % Plt Count 202 (160-400) X10*3/uL MPV 9.0 L (9.4-12.3) fL Immature Gran % (Auto) 0.4 (0.0-0.4) % Neut % (Auto) 79.6 H (45-73) % Lymph % (Auto) 12.1 L (20-40) % Page % (Auto) 6.7 (2-11) % Eos % (Auto) 0.9 (0-4) % Baso % (Auto) 0.3 (0-2) % Lymph # (Auto) 1.2 (1.2-4.9) X10*3/uL Page # (Auto) 0.7 (0.1-1.2) X10*3/uL Eos # (Auto) 0.1 (0.0-0.4) X10*3/uL Baso # (Auto) 0.0 (0.0-0.2) X10*3/uL Abs Immat Gran (auto) 0.04 H (0.00-0.03) X10*3/uL Absolute Neuts (auto) 8.1 (2.0-8.3) x10*3/uL Absolute Nucleated RBC 0.000 (0.0-0.012) X10*3/uL Nucleated RBC % (auto) 0.0 (0.0-0.2) /100WBC PT (9.9-13.0) SEC INR (0.9-1.1) Sodium 140 (135-145) mmol/L Potassium 3.7 (3.3-5.1) mmol/L Chloride 102 (96-108) mmol/L Carbon Dioxide 30 H (22-29) mmol/L Anion Gap 12 (12-20) BUN 12 (9-16) mg/dL Creatinine 0.73 (0.5-1.4) mg/dL Estim Creat Clear Calc 179.4 Estimated GFR > 60 Random Glucose 153 H (60-115) mg/dL Calcium 9.2 (8.4-10.2) mg/dL Total Bilirubin 0.4 (0.0-1.0) mg/dL AST 7 (5-31) U/L ALT 18 (0-31) U/L Alkaline Phosphatase 68 (39-117) U/L Total Protein 6.1 L (6.5-8.0) g/dL Albumin 3.7 (3.5-5.0) g/dL Lipase 30 (8-78) U/L Beta HCG, Quant < 2 mIU/mL Urine Color Urine Appearance Urine pH (5.0-8.0) Ur Specific [place] (1.005-1.025) Urine Protein (NEG-TRACE) MG/DL Urine Glucose (UA) (NEG) MG/DL Urine Ketones (NEG) MG/DL Urine Blood (NEG) Urine Nitrite (NEG) Ur Leukocyte Esterase (NEG) 11/05/21 11/05/21 Range/Units 20:22 22:13 WBC (4.8-10.8) X10*3/uL RBC (4.20-5.50) X10*6/uL Hgb (12.0-16.0) g/dl Hct (37.0-47.0) % MCV (80.0-98.0) fL MCH (27.0-33.0) pg MCHC (31.0-35.0) g/dl RDW (11.0-16.0) % Plt Count (160-400) X10*3/uL MPV (9.4-12.3) fL Immature Gran % (Auto) (0.0-0.4) % Neut % (Auto) (45-73) % Lymph % (Auto) (20-40) % Page % (Auto) (2-11) % Eos % (Auto) (0-4) % Baso % (Auto) (0-2) % Lymph # (Auto) (1.2-4.9) X10*3/uL Page # (Auto) (0.1-1.2) X10*3/uL Eos # (Auto) (0.0-0.4) X10*3/uL Baso # (Auto) (0.0-0.2) X10*3/uL Abs Immat Gran (auto) (0.00-0.03) X10*3/uL Absolute Neuts (auto) (2.0-8.3) x10*3/uL Absolute Nucleated RBC (0.0-0.012) X10*3/uL Nucleated RBC % (auto) (0.0-0.2) /100WBC PT 29.3 H (9.9-13.0) SEC INR 2.5 H (0.9-1.1) Sodium (135-145) mmol/L Potassium (3.3-5.1) mmol/L Chloride (96-108) mmol/L Carbon Dioxide (22-29) mmol/L Anion Gap (12-20) BUN (9-16) mg/dL Creatinine (0.5-1.4) mg/dL Estim Creat Clear Calc Estimated GFR Random Glucose (60-115) mg/dL Calcium (8.4-10.2) mg/dL Total Bilirubin (0.0-1.0) mg/dL AST (5-31) U/L ALT (0-31) U/L Alkaline Phosphatase (39-117) U/L Total Protein (6.5-8.0) g/dL Albumin (3.5-5.0) g/dL Lipase (8-78) U/L Beta HCG, Quant mIU/mL Urine Color YELLOW Urine Appearance CLEAR Urine pH 6.5 (5.0-8.0) Ur Specific [place] 1.010 (1.005-1.025) Urine Protein NEG (NEG-TRACE) MG/DL Urine Glucose (UA) NEG (NEG) MG/DL Urine Ketones NEG (NEG) MG/DL Urine Blood NEG (NEG) Urine Nitrite NEG (NEG) Ur Leukocyte Esterase NEG (NEG) Imaging Data CT scan - head: Radiologist's impression: IMPRESSION: No acute intracranial pathology. Discharge Plan Discharge Clinical Impression: Fall, Seizure, Epigastric abdominal pain, Pseudoseizures Patient Disposition: [facility] Instructions: Head Injury (ED), Abdominal Pain (ED), Recurrent Seizures in Adults (ED) Additional Instructions: Continue current medications. Use acetaminophen for headache. Return for any new or worse symptoms. He had a degree of upper abdominal pain. He due to her body habitus, CT scan of the abdomen pelvis was not possible. Ultrasound also not be useful given her body habitus. Labs were unremarkable. CT of the brain showed no abnormality Prescriptions: No Action multivitamin [Multi-Vitamin] Tablet 1 tab PO DAILY 0RF furosemide 40 mg Tablet 40 mg PO DAILY 0RF lamotrigine 150 mg Tablet 150 mg PO DAILY 0RF sennosides [senna] 8.6 mg Tablet 17.2 mg PO DAILY 0RF gabapentin 600 mg Tablet 600 mg PO QID 0RF Lantus U-100 Insulin 100 unit/mL Solution 30 unit SUBCUT BEDTIME 0RF haloperidol 5 mg Tablet 5 mg PO DAILY 0RF divalproex 250 mg Tablet,Delayed Release (Dr/Ec) 250 mg PO BID 0RF warfarin 10 mg Tablet 12 mg PO DAILY@1700 0RF olanzapine 5 mg Tablet 5 mg PO Q6H PRN (Reason: Anxiety) 0RF melatonin 3 mg Tablet 6 mg PO BEDTIME 0RF zonisamide 100 mg Capsule 100 mg PO DAILY 0RF ascorbic acid (vitamin C) [Vitamin C] 500 mg Tablet 500 mg PO BID 0RF trazodone 100 mg Tablet 200 mg PO BEDTIME 0RF lorazepam 2 mg Tablet 2 mg PO DAILY PRN (Reason: Anxiety) 0RF insulin aspart U-100 [Novolog U-100 Insulin aspart] 100 unit/mL Solution 1 sliding scale dose SUBCUT BID 0RF Rx Instructions: 201-250: 2 UNITS 251-300: 4 UNITS 301-350: 6 UNITS 351-400: 8 UNITS levothyroxine 50 mcg Tablet 50 mcg PO DAILY 0RF pantoprazole 40 mg Tablet,Delayed Release (Dr/Ec) 40 mg PO DAILY 0RF fluticasone propion-salmeterol [Advair Diskus] 500-50 mcg/dose Blister With Device 1 inh INHALATION BID 0RF haloperidol 10 mg Tablet 10 mg PO BEDTIME 0RF metoprolol tartrate 50 mg Tablet 50 mg PO BID 0RF docusate sodium 100 mg Capsule 100 mg PO BID 0RF calcium carbonate [Tums 500] 500 mg calcium (1,250 mg) Tablet,Chewable 500 mg PO DAILY 0RF loratadine 10 mg Tablet 10 mg PO DAILY 0RF levalbuterol tartrate 45 mcg/actuation Hfa Aerosol Inhaler 1 puff INHALATION Q4-6H PRN (Reason: Shortness Of Breath) 0RF lacosamide 200 mg Tablet 200 mg PO BID 0RF Victoza 3-Fabian 0.6 mg/0.1 mL (18 mg/3 mL) Pen Injector 3 mg SUBCUT DAILY 0RF Tudorza Pressair 400 mcg/actuation Aerosol Powdr Breath Activated 1 inh INHALATION BID 0RF potassium chloride 20 mEq Tablet Extended Release 20 meq PO DAILY 0RF Prezcobix 800-150 mg-mg Tablet 1 tab PO DAILY 0RF Rx Instructions: must administer with a meal/food Interventions: ED Discharge Assessment Last Done: 11/05/21 23:24
[2021-11-05 20:50] LABS: HCG Quantitative < 2 mIU/mL
--- NOTE | 2021-11-05 22:12 | PC.NURSE ---
PER MD: NO NEED FOR SEZIURE PRECAUTIONS AT THIS TIME. CURTIAN REMAINS OPEN, IV PATENT, AND SUCTION AT BEDSIDE.
[2021-11-05 22:21] LABS: Appearance Urine CLEAR; Color Urine YELLOW; Glucose Urine UA NEG (NEG); Leukocyte Esterase Urine NEG (NEG); Nitrite Urine NEG (NEG); PH 6.5 (5.0-8.0); Urine Blood NEG (NEG); Urine Ketones NEG (NEG); Urine Protein NEG (NEG-TRACE)
[2021-11-06] MEDS: LORazepam 2 MG/ML VIAL IVPUSH (00:49)
--- NOTE | 2021-11-06 01:26 | PC.NURSE ---
[facility] is [facility].
[2021-11-06 02:50] VITALS: RESP 20
[2021-11-06 05:57] VITALS: BP 146/80; PULSE 99; RESP 15; TEMP 36.6; O2SAT 96
[2021-11-06 07:08] VITALS: BP 149/89; PULSE 102; RESP 16; TEMP 36.7; O2SAT 97
--- NOTE | 2021-11-06 07:38 | PC.NURSE ---
Patient is asleep on stretcher at this time. Appears comfortable. Respirations regular and even. Equal chest rise/fall. Skin PWD. Patient is ready for discharge, but awaiting EMS transportation. Will continue to monitor.
== END 2021-11-06 09:20 | disposition skilled nursing facility (03) ==
PROVIDERS: Emergency Provider Emergency Medicine
DX: R56.9 Unspecified convulsions (principal); R10.13 Epigastric pain; R51.9 Headache, unspecified; Z91.81 History of falling
CPT/HCPCS: 36415; 70450; 80053; 81003; 83690; 84702; 85025; 85610; 93005; 96361; 96374; 96375; 96376; 99284; J2060; J2405